=== PATIENT | male | born 1955 | race Caucasian/White ===

== ENCOUNTER → 2017-03-25 | Outpatient (CLI) | payer OTHER ==
--- NOTE | 2017-03-31 18:53 | SLEEPCENT ---
DATE OF PROCEDURE: 03/25/2017 REFERRING PHYSICIAN: Alanna Crespo Nocturnal polysomnography was performed for the titration of pressure therapy in this patient with a clinical diagnosis of obstructive sleep apnea syndrome supported by home testing revealing a respiratory event index of 38. For testing, the patient was fit with a [employer] Quattro full face mask of medium size, 5 cm of water pressure were applied to the circuit and the lights were extinguished. 6 hours and 52 minutes of data were reviewed. There were 242 minutes of sleep identified. Sleep latency was mildly prolonged at 25 minutes. Rapid eye movement (REM) latency was more so prolonged at 278 minutes. Sleep architecture showed fragmentation with periods of wake resulting in reduced sleep efficiency of 60%. The patient's electrocardiogram showed a sinus rhythm with unifocal ventricular ectopy. Average heart rate was 85 beats per minute. EEG showed normal waveforms for awake and sleep. Respiratory events were best palliated with CPAP pressure of +11. Some limb activity persisted. Despite optimal pressure therapy limb movement arousal index was borderline at 5.2. IMPRESSION: Obstructive sleep apnea syndrome (G47.33). RECOMMENDATION: Nightly use of pressure therapy 11 cm of water.
== END ==
LOC: M SLEEP 19:30
PROVIDERS: ATTEND Nurse Practitioner Adult Health
DX: G47.33 Obstructive sleep apnea (adult) (pediatric) (principal)

== ENCOUNTER → 2019-01-28 | Outpatient (CLI) | payer OTHER ==
--- NOTE | 2019-01-28 15:21 | REP ---
DEEP VEIN ULTRASOUND STUDY AND REFLUX STUDY: TECHNIQUE: Multiple ultrasonographic images of the deep venous structures of the left thigh were obtained from the common femoral vein to the popliteal vein along with Doppler interrogation and color flow Doppler images. FINDINGS: There is no abnormal echogenic material seen within any of the visualized deep venous structures that would suggest acute thrombosis. Coaptation is unremarkable throughout. Doppler interrogation shows an expected response to respiratory variability and augmentation. The color flow images show what appears to be a normal vascular pattern throughout. IMPRESSION: There is no ultrasonographic evidence of deep venous thrombosis involving any of the visualized deep venous structures of the left thigh, as described above. REFLUX STUDY Reflux study was performed on the left. FINDINGS: No reflux was seen in the common femoral vein. An anterior accessory greater saphenous vein was not present. No reflux was seen in the greater saphenous vein at the saphenofemoral junction, the AP dimension of which measured 6 mm. No reflux was seen in the greater saphenous vein at the mid thigh, the AP dimension of which measures 5 mm. No reflux was seen in the greater saphenous vein at the knee, the AP dimension of which measured 4 mm. No reflux was seen any of the superficial femoral veins, popliteal vein, or lesser saphenous vein, the AP dimension of which measured 2 mm. Collaterals vessels were seen off the greater saphenous vein, both deep and superficial systems. IMPRESSION: No evidence of abnormal reflux. Findings as described above. Electronically Signed by Bolivar Bryant DO 01/28/2019 04:23 P
== END ==
LOC: M RAD 08:54
PROVIDERS: ATTEND Surgery
DX: I87.312 Chronic venous hypertension (idiopathic) with ulcer of left lower extremity (principal)